=== PATIENT | female | born 1985 | race Caucasian/White ===

== ENCOUNTER 2017-02-22 23:30 | Emergency (ER) | payer OTHER | END 2017-02-23 02:29 | disposition home or self-care (01) | LOC: ER 23:30 | DX: N93.0 Postcoital and contact bleeding (principal); A63.0 Anogenital (venereal) warts; F17.210 Nicotine dependence, cigarettes, uncomplicated; Z79.899 Other long term (current) drug therapy; Z88.0 Allergy status to penicillin ==

== ENCOUNTER 2017-04-07 17:34 | Emergency (ER) | payer OTHER | END 2017-04-07 20:42 | disposition home or self-care (01) | LOC: ER 17:34 | DX: S51.011A Laceration without foreign body of right elbow, initial encounter (principal); W25.XXXA Contact with sharp glass, initial encounter; E07.9 Disorder of thyroid, unspecified; Z79.899 Other long term (current) drug therapy; Z88.0 Allergy status to penicillin | CPT/HCPCS: 12002; 73090; 99070; 99282 ==